=== PATIENT | female | born 1980 | race Caucasian/White ===

== ENCOUNTER 2022-04-22 08:14 | Emergency (ER) | payer BC, MEDICAID, SELFPAY ==
[2022-04-22 08:20] VITALS: BP 135/89; PULSE 74; RESP 18; TEMP 36.7; O2SAT 97; BMI 37.5
--- NOTE | 2022-04-22 08:28 | PC.NURSE ---
Pt ambulatory to room without obvious distress. Pt sat in chair next to bed, reports doesn't want to lay in the bed due to pain would increase. Pt reports she push mowed the lawn a few days ago and today is reporting squeezing pain to middle of back, worse pain and difficulty breathing with laying down. Reports this is the 2nd time she has ever mowed. reports chronic low back pain but hasn't been able to feel it due to this pain. Denies symptoms, fevers, or trauma. Denies chest pain. Lung sounds clear bilat. skin pink/warm/dry. speech clear. speaking in complete sentences without difficulty. Call light set within reach and instructed on use.
--- NOTE | 2022-04-22 08:29 | XR_ITS ---
WS: [id number] XR chest 1V portable [id number] REASON FOR EXAM: sob FINDINGS: The heart and mediastinum are within normal limits. Calcified granulomatous disease is seen in both hemithoraces. No acute pulmonary parenchymal or pleural abnormality. No significant abnormality bony thorax. XR/XR chest 1V portable [id number] IMPRESSION: No acute chest abnormality.
--- NOTE | 2022-04-22 08:43 | ED_ITS ---
HPI - Back Pain/Injury General: Chief Complaint: Back Pain/Injury Stated Complaint: Back Pain Time Seen by Provider: 04/22/22 08:29 Source: patient Mode of arrival: ambulatory Limitations: no limitations History of Present Illness: 42-year-old female states she has been having mid back pain that wraps around her chest for last 3 days states she pushed mowed 3 days ago and has had the pain since then states it is much worse with palpation movement and with deep breathing she denies any anterior chest pain denies any cough denies any fever denies any exertional component. Associated symptoms: Deny abdominal pain, chills, dysuria, fever(s), nausea or vomiting Review of Systems Const: Denies: fever(s), chills, body aches or change in appetite Eyes: Denies: blurry vision or eye discomfort ENMT: Denies: throat pain or dental pain Card: Reports: chest pain Resp: Denies: dyspnea GI: Denies: abdominal pain, nausea, vomiting or diarrhea : Denies: dysuria Musc: Denies: neck pain or back pain Skin/Breast: Denies: rash Neuro: Denies: headache(s) Psych: Denies: depression Carson/Lymph: Denies: easy bruising All/Imm: Denies: urticaria PFS ED PFSH: Medical History (Updated 04/22/22 @ 09:07 by Dang Olsen MD) No pertinent past medical history Social History Substance/Drug Use: never Female Reproductive History: Date of last menstrual period: 04/22/22 Physical Exam Const: COMMON NORMALS: no acute distress, patient oriented x3 and healthy appearing HENMT: COMMON NORMALS: normocephalic and atraumatic HEAD & SCALP: normocephalic and atraumatic Eye: COMMON NORMALS: Equal, round and reactive pupils present and EOMs intact bilaterally PUPIL: Yes Equal, round and reactive pupils present Neck/C-Spine: COMMON NORMALS: full ROM and supple Chest: COMMONS NORMALS: normal inspection of the chest and normal palpation of entire chest wall Resp: COMMON NORMALS: normal respiratory effort, No retractions, No use of accessory muscles and clear to auscultation bilaterally AUSCULTATION: clear to auscultation bilaterally Cardio: COMMON NORMALS: regular rate, regular rhythm and No murmurs present (Cardio) RATE: regular rate RHYTHM: regular rhythm GI: COMMON NORMALS: Normal to inspection, nondistended, normoactive bowel sounds present, Soft to palpation, non-tender and no masses PALPATION: Yes Soft to palpation Back/Pelvis: OTHER: Point tenderness bilaterally paraspinal to the T-spine laterally along her chest wall as well reproduces her pain Extremity: COMMON NORMALS: normal to inspection and full ROM Neuro: COMMON NORMALS: patient oriented x3, moves all extremities and no focal motor deficits Psych: COMMON NORMALS: mental status grossly normal, Normal thought process present and cooperative THOUGHT PROCESS: Normal thought process present Skin: COMMON NORMALS: no rashes or lesions noted and no wounds GENERAL SKIN EXAM: no rashes or lesions noted Course Vital Signs: Vital signs: Vital Signs Temperature 98.0 F 04/22/22 08:20 Pulse Rate 74 04/22/22 08:20 Respiratory Rate 18 04/22/22 08:20 Blood Pressure 135/89 04/22/22 08:20 Pulse Oximetry 97 04/22/22 08:20 Oxygen Delivery Me thod 04/22/22 08:20 MDM - Back Pain/Injury Medical Decision Making Patient presents here with back pain is likely muscular in nature from mowing she is point tender on exam her EKG and x-ray are normal she is no signs of a pulmonary embolism or cardiac cause we will place her on Naprosyn Robaxin she is stable for discharge she is to follow-up PCP and return if worsening she understands agrees plan. Labs Radiology Impressions Chest X-Ray 04/22/22 08:29 IMPRESSION: No acute chest abnormality. EKG Data EKG 1: I personally reviewed and interpreted this EKG as follows: EKG interpretation date: 04/22/22 EKG interpretation time: 08:59 Interpretation: sinus santiago hr [address] or t wave abnormalities qrs 87 qtc 400 Discharge Plan Discharge Patient Disposition: Home Clinical Impression: Thoracic back pain Qualifiers: Chronicity: acute Back pain laterality: bilateral Qualified Code(s): M54.6 - Pain in thoracic spine Condition: Stable Prescriptions: New methocarbamol 750 mg tablet 750 mg PO Q6H PRN (Reason: spasms) Qty: 20 0RF Naprosyn 500 mg tablet 500 mg PO BID PRN (Reason: pain) Qty: 20 0RF Discharge Orders: Discharge ED (Routine); Ordered 04/22/22 Ordered By: Dang Olsen Discharge Diet: Advance as tolerated Discharge Activity: Resume usual activity Patient Instructions: Back Pain (ED) Coding Level of Care Code ED 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
[2022-04-22] MEDS: ketorolac 60 mg/2 mL INJ IM (08:45)
[2022-04-22] MEDS: methocarbamol 750 mg Tablet PO (08:45)
--- NOTE | 2022-04-22 08:50 | ECG_ITS ---
[facility] Test Date: 2022-04-22 Pat Name: Abigail Tello Department: Room: Gender: Female [employer]: : 1980 Requested By: Dang Olsen Order Number: [id number] Mili MD: Elizabeth Acosta M.D. Measurements Intervals Shiner Rate: 56 P: 5 PA: 144 QRS: 18 QRSD: 87 T: 7 QT: 409 QTc: 396 Interpretive Statements SINUS BRADYCARDIA No previous ECG available for comparison Electronically Signed On 04-22-2022 13:42:38 CDT by Elizabeth Acosta M.D. [email or web address]
[2022-04-22 09:32] VITALS: BP 121/85; PULSE 60; RESP 16; O2SAT 97
== END 2022-04-22 09:33 | disposition home or self-care (01) ==
PROVIDERS: Emergency Provider Emergency Medicine
DX: M54.6 Pain in thoracic spine (principal)
CPT/HCPCS: 71045; 93005; 96372; 99284; J1885

== ENCOUNTER → 2022-06-08 10:01 | Outpatient (BNVA) | payer BC, MEDICAID, SELFPAY | PROVIDERS: PCP Nurse Practitioner Family; Visit Provider Nurse Practitioner Family | DX: Z11.3 Encounter for screening for infections with a predominantly sexual mode of transmission (principal); N94.6 Dysmenorrhea, unspecified; R42 Dizziness and giddiness; R10.11 Right upper quadrant pain | CPT/HCPCS: 80053; 80061; 81003; 82306; 82607; 83735; 84439; 84443; 85025; 86592; 86695; 86696; 86705; 86706; 86709; 86803; 87340; 87491; 87591; 87661; 87806 ==

== ENCOUNTER → 2022-06-24 12:35 | Outpatient (BNVA) | payer BC, MEDICAID, SELFPAY | PROVIDERS: PCP Nurse Practitioner Family; Visit Provider Nurse Practitioner Family | DX: N94.6 Dysmenorrhea, unspecified (principal); Z11.3 Encounter for screening for infections with a predominantly sexual mode of transmission; R42 Dizziness and giddiness; R10.11 Right upper quadrant pain | CPT/HCPCS: 87491; 87591; 87661 ==

== ENCOUNTER 2022-08-09 07:31 | Outpatient (CLI) | payer BC, MEDICAID, SELFPAY ==
--- NOTE | 2022-08-09 08:15 | US_ITS ---
WS: [id number] Gallbladder and right upper quadrant ultrasound, 08/09/2022 Clinical Data: R10.11 - Right upper quadrant pain Comparison: None. Findings: The gallbladder shows no sludge or stone. The wall measures 0.2 cm with no pericholecystic fluid. The common bile duct is 0.2 cm and there are no intrahepatic ductal abnormalities. Liver shows no cysts, masses or dilated intrahepatic ducts. The portal vein shows normal flow. The pancreas is not obscured by overlying bowel gas and no cyst, pseudocyst, or evidence of pancreati tis is noted. Right kidney measures 11.2 cm and no cyst, masses or hydronephrosis can be seen. The aorta and inferior vena cava show no vascular abnormalities. US/US gall bladder [id number] Impression: Negative gallbladder and right upper quadrant ultrasound
== END 2022-08-09 07:32 | disposition home or self-care (01) ==
LOC: RAD 07:36
PROVIDERS: PCP Nurse Practitioner Family; Visit Provider Nurse Practitioner Family
DX: R10.11 Right upper quadrant pain (principal)
CPT/HCPCS: 76705

== ENCOUNTER → 2022-08-15 12:09 | Outpatient (BNVA) | payer BC, MEDICAID, SELFPAY | PROVIDERS: PCP Nurse Practitioner Family; Visit Provider Obstetrics & Gynecology | DX: N94.6 Dysmenorrhea, unspecified (principal); N85.2 Hypertrophy of uterus | CPT/HCPCS: 76830 ==

== ENCOUNTER 2022-10-19 08:40 | Day surgery (SDC) | payer BC, MEDICAID, SELFPAY ==
[2022-10-17 11:35] LABS: Add Urine Microscopic? NO; Charge for UA Resulting for Rev
[2022-10-17 11:39] LABS: Basophils % 0.4 %; Eosinophils # 0.1 10^3/uL (0.0-0.8); Eosinophils % 1.1 %; Hematocrit 40.7 % (37.0-47.0); Hemoglobin 12.9 g/dL (11.5-15.3); Lymphocytes # 2.9 10^3/uL (0.8-4.8); Lymphocytes % 34.3 %; Mean Corpuscular HGB Conc 31.7 g/dL (30.0-36.0); Mean Corpuscular Hemoglobin 29.1 pg (28.0-34.0); Mean Corpuscular Volume 91.7 fl (81-99); Mean Platelet Volume 9.8 fL (7.4-10.4); Monocytes # 0.5 10^3/uL (0.2-0.9); Monocytes % 6.3 %; Neutrophils # 4.85 10^3/uL (1.8-7.7); Neutrophils % 57.5 %; Nucleated Red Blood Cells % 0 %; Platelet Count 194 10^3/cmm (130-400); Red Blood Count 4.44 10^6/uL (4.1-5.3); Red Cell Distribution Width 12.5 % (12.1-15.1); White Blood Count 8.4 10^3/uL (4.0-10.0)
[2022-10-17 11:45] LABS: Bilirubin Urine Neg (Negative); Blood Urine Neg (Negative); Glucose Urine UA Norm (Normal); Ketones Urine 1+ (Negative); Leukocyte Esterase Urine Negative (Negative); Nitrate Urine Negative (Negative); Protein Urine Neg (Negative); Urine Appearance Clear (CLEAR); Urine Color Yellow (Yellow); Urobilinogen Urine Neg (Negative); pH Urine 5 (5-7)
[2022-10-17 11:56] LABS: Alanine Aminotransferase 12 U/L (0-33); Albumin Level 3.9 g/dL (3.5-5.2); Alkaline Phosphatase 103 U/L (35-105); Anion Gap 13.1 (5-19); Aspartate Amino Transferase 13 U/L (0-32); Blood Urea Nitrogen 10 mg/dL (6-20); Carbon Dioxide 25 mmol/L (22-29); Chloride 109 mmol/L (98-107); Globulin 2.6 g/dL (1.3-4.6); Glomerular Filtration Rate 109.1 mL/min (90-130); Glucose 100 mg/dL (65-115); Osmolality Calculated 295 mOsm/kg (285-295); Potassium 4.1 mmol/L (3.5-5.1); Sodium 143 mmol/L (136-145); Total Bilirubin 0.2 mg/dL (0.15-1.2); Total Protein 6.5 g/dL (6.6-8.7)
[2022-10-17 12:50] VITALS: BMI 37.8
--- NOTE | 2022-10-17 15:29 | P.ANESASSM_ITS ---
Pre-Anesthetic Assessment Height/Weight: Height 1.68 m Weight 106.141 kg Operation Date: 10/19/22 10:15 Proposed Procedures p Diagnostic laparoscopy 65655, N94.6(Not Applicable) - Paul Singer MD Familial anesthetic complications: None Was Beta Stephanie taken within 24 hours: N/A Was Clonidine taken within 24 hours: N/A Social No alcohol and No tobacco Exam alert, oriented x 3, clear to auscultation bilaterally and regular rate & rhythm Airway Submandibular: within normal limits Cervical ROM: within normal limits Mallampati: Class II Dentition: chipped GI Gastroesophageal Reflux Disease Metabolic Morbid Obesity Anesthetic Plan ASA status: 2 Anesthesia: General Medications/Allergies Home Medications Medication Instructions Recorded Confirmed Last Taken Type omeprazole 20 mg capsule,delayed See Rx Instructions .Route 08/09/22 10/17/22 10/17/22 Rx release .COMPLEX #180 caps Allergies Allergy/AdvReac Type Severity Reaction Status Date / Time No Known Allergies Allergy Verified 10/17/22 11:12 [facility] Anesthesia Medical History Herpes simplex antibody positive No pertinent past medical history Surgical History History of bilateral tubal ligation Family History Grandfather Cancer maternal, unknown what kind of cancer Diabetes paternal Grandmother Diabetes paternal Family/Other Diabetes paternal grandfather and grandmother Mother Thyroid condition Denies family history of Colon cancer Ovarian cancer Clotting disorder Dementia Heart disease Hyperlipidemia Chronic kidney disease (CKD) Breast cancer Anesthesia complication Bleeding disorder Hypertension Uterine cancer Stroke Social History Smoking and tobacco status: smoker, details unknown (vape) e-cigarettes E- Cigarette Details: vaporizer device Alcohol intake: never Desire information about alcohol rehabilitation?: No Adopted: No Caregiver/support person: No Lives independently: Yes Marital status: Single Number of children: 3 Current occupational status: employed Current occupation: [id number] Current gender identity: Female Special timo needs: No Female Reproductive History Date of last menstrual period: 04/22/22 Data Anesthesia 10/17/22 11:30 10/17/22 11:30 Short CBC 10/17/22 Range/Units 11:30 WBC 8.4 (4.0-10.0) 10^3/uL Hgb 12.9 (11.5-15.3) g/dL Hct 40.7 (37.0-47.0) % MCV 91.7 (81-99) fl Plt Count 194 (130-400) 10^3/cmm Neut % (Auto) 57.5 % Neut # (Auto) 4.85 (1.8-7.7) 10^3/uL BMP 10/17/22 11:30 Sodium 143 Potassium 4.1 Chloride 109 H Carbon Dioxide 25 BUN 10 Creatinine 0.6 Glucose 100 Calcium 9.0 Liver Function 10/17/22 Range/Units 11:30 Total Bilirubin 0.2 (0.15-1.2) mg/dL AST 13 (0-32) U/L ALT 12 (0-33) U/L Alkaline Phosphatase 103 (35-105) U/L Albumin 3.9 (3.5-5.2) g/dL Urine 10/17/22 Range/Units 11:30 Urine Color Yellow (Yellow) Urine Appearance Clear (CLEAR) Urine pH 5 (5-7) Ur Specific [place] 1.030 (1.005-1.030) Urine Protein Neg (Negative) Urine Glucose (UA) Norm (Normal) Urine Ketones 1+ H (Negative) Urine Nitrate Negative (Negative) Urine Bilirubin Neg (Negative) Ur Leukocyte Esterase Negative (Negative) Blood Bank 10/17/22 11:30 Blood Type O Positive Rho(D) Type Positive Antibody Screen TNP Cardiac Studies: No Data to Display
[2022-10-19] VITALS (12 sets, daily range): BP systolic 121–152; BP diastolic 80–101; PULSE 59–107; RESP 16–18; TEMP 36.2–36.6; O2SAT 90–100
[2022-10-19] MEDS: sodium chloride 0.9% 500 ML IV (09:20)
[2022-10-19] MEDS: scopolamine 1.5 Patch 1 PATCH TRANSDERMA (09:22)
[2022-10-19] MEDS: HYDROmorphone 1 mg/mL INJ 1 mL 0.5 MG IVP (09:23)
[2022-10-19 09:36] LABS: OR HCG Qualitative Urine Negative (Negative)
[2022-10-19] MEDS: sodium chloride 0.9% 1,000 ML 30 ML IV (09:44)
--- NOTE | 2022-10-19 10:38 | W.PM.OPSUD ---
Surgery/Procedure H&P Update DATE OF PROCEDURE: October 19, 2022 DATE H&P PERFORMED: 09/13/22 H&P UPDATE INFORMATION: I have reviewed H&P completed within last 30 days, I have examined patient prior to procedure and Changes to prior documentation as noted here PREOP DIAGNOSIS: Dysmenorrhea, pelvic pain PLANNED PROCEDURE: Operation Date: 10/19/22 10:15 Proposed Procedures p Diagnostic laparoscopy 97013, N94.6(Not Applicable) - Paul Singer MD
[2022-10-19] MEDS: ceFAZolin 2,000 MG in sodium chloride 0.9% (plus) 50 ML 100 MG IV (11:05)
--- NOTE | 2022-10-19 12:04 | P.OP_ITS ---
Operative Report Date of procedure: October 19, 2022 Pre-op diagnosis: Preop Diagnosis Dysmenorrhea, pelvic pain Post-op diagnosis: Same as above Procedure done: Diagnostic laparoscopy Pathology: No POWER WHEELCHAIR MECHANIC pathology noted Surgeon: Paul Singer MD Estimated blood loss (mL): 1 IV fluids (mL): 600 Urine output (mL): 200 Procedure: After informed consent, the patient was taken to the operating room where general anesthesia was administered. The patient was examined under anesthesia and found to have a normal uterus with normal adnexa. She was placed in the dorsal lithotomy position and prepped and draped in sterile fashion. Pre- Procedure Time-Out verifying the correct patient identity, correct procedure verified with consent, correct site and side, correct patient position, availability of correct implants and any special equipment or requirements was performed and acknowledge by the OR team. A weighted speculum was placed in the vagina, and the anterior lip of cervix was grasped with the single toothed tenaculum. A uterine manipulator was advanced into the endocervical. Tenaculum was removed after uterine manipulator was secured. The speculum was removed from the vagina. An intraumbilical incision was made with a scalpel. While tenting up on the abdomen, a Verres needle with sleeve was admitted into the intra-abdominal cavity. A saline drop test was performed and noted to be within normal limits. Pneumoperitoneum was attained with 4 liters of carbon dioxide. The Verres needle was removed. A 5 mm trocar and sleeve were admitted into the abdomen and laparoscopic confirmation of location was achieved, A second incision was made 3 cm above the symphysis pubis, and a 5 mm trocar and sleeve were admitted into the abdomen under direct, laparoscopic visualization without complication. A survey revealed normal abdominal anatomy. Pelvic survey shows normal uterus, left and right adnexa status post partial salpingectomy. A 5 mm blunt probe was advanced through the second trocar sleeve, and light manipulation of ovaries and uterus to assess the posterior aspects was performed. No POWER WHEELCHAIR MECHANIC pathology noted. carbon dioxide was allowed to escape from the abdomen. The instruments were removed, and skin cover with a bandage. The instruments were removed from the vagina, and excellent hemostasis was noted. The patient tolerated the procedure well, and sponge, lap and needle count were correct times two. The patient taken to the recovery room in good condition.
[2022-10-19] MEDS: fentaNYL 50 mcg/mL INJ 2mL IVP (12:15)
[2022-10-19] MEDS: HYDROcodone-acetaminophen 5-325 mg Tablet 1 TAB PO (13:09)
--- NOTE | 2022-10-19 13:30 | P.ANESUD_ITS ---
Pre-Anesthetic Update Pre-Anesthetic Assessment: Date of Surgery/Procedure: 10/19/22 Preop Cherry gnosis: Dysmenorrhea, pelvic pain Proposed Procedure: Operation Date: 10/19/22 10:15 Proposed Procedures p Diagnostic laparoscopy 92174, N94.6(Not Applicable) - Paul Singer MD Any changes to Pre-Anesthetic Assessment?: No Last Intake: Intake Last Liquid Date 10/18/22 Last Liquid Time 21:00 Last Solid Date 10/18/22 Last Solid Time 21:00 Vitals: Temperature 97.8 F 10/19/22 12:57 Temperature Source Temporal Artery S can 10/19/22 12:57 Pulse Rate 59 L 10/19/22 13:07 Respiratory Rate 18 10/19/22 13:07 Respiratory Effort 10/19/22 12:15 Respiratory Depth Normal 10/19/22 12:15 Respiratory Patter n 10/19/22 12:15 Blood Pressure 121/80 10/19/22 13:07 Blood Pressure Irina n 93 10/19/22 13:07 Pulse Oximetry 96 10/19/22 13:07 Oxygen Delivery Me thod 10/19/22 13:07 Oxygen Flow Rate 2 10/19/22 12:41 Exam: Pre-Anes Outpt Exam: alert, oriented x 3, clear to auscultation bilaterally and regular rate & rhythm Cardiac Studies: No Data to Display
--- NOTE | 2022-10-19 15:32 | ANE.PACU2 ---
Inpatient post-anesthesia follow up: Airway intact: Yes Vital signs: Temperature 97.8 F Pulse Rate 59 Respiratory Rate 18 Blood Pressure 121/80 Pulse Oximetry 96 Oxygen Delivery Me thod Room Air Oxygen Flow Rate 2 Fraction of Inspir ed Oxygen Hydration adequate: Yes Nausea and vomiting: No Pain level: 3 Mental status: Baseline
== END 2022-10-19 13:40 | disposition home or self-care (01) ==
PROVIDERS: PCP Nurse Practitioner Family; Visit Provider Obstetrics & Gynecology
PROC: (CPT 49320; principal; 2022-10-19 10:05)
DX: R10.2 Pelvic and perineal pain (principal); N94.6 Dysmenorrhea, unspecified; N94.10 Unspecified dyspareunia; K21.9 Gastro-esophageal reflux disease without esophagitis; E66.01 Morbid (severe) obesity due to excess calories; Z68.37 Body mass index [BMI] 37.0-37.9, adult; F17.290 Nicotine dependence, other tobacco product, uncomplicated
CPT/HCPCS: 49320; 36415; 80053; 81003; 81025; 84703; 85025; 86850; 86900; J0690; J1170; J1885; J2250; J2405; J2704; J3010; J3490; J7030; J7040

== ENCOUNTER → 2023-03-14 15:36 | Outpatient (BNVA) | payer BC, MEDICAID, SELFPAY | PROVIDERS: PCP Nurse Practitioner Family; Visit Provider Emergency Medicine | DX: M25.572 Pain in left ankle and joints of left foot (principal) | CPT/HCPCS: 73610 ==

== ENCOUNTER → 2023-04-05 09:44 | Outpatient (BNVA) | payer BC, MEDICAID, SELFPAY | PROVIDERS: PCP Nurse Practitioner Family; Visit Provider Nurse Practitioner Family | DX: E55.9 Vitamin D deficiency, unspecified (principal); K21.9 Gastro-esophageal reflux disease without esophagitis | CPT/HCPCS: 80053; 82306; 84443 ==

== ENCOUNTER → 2023-05-11 09:26 | Outpatient (BNVA) | payer BC, MEDICAID, SELFPAY | PROVIDERS: PCP Nurse Practitioner Family; Visit Provider Podiatrist Foot & Ankle Surgery | DX: M79.672 Pain in left foot (principal); M72.2 Plantar fascial fibromatosis; M24.572 Contracture, left ankle | CPT/HCPCS: 73630 ==

== ENCOUNTER 2023-10-20 10:38 | Outpatient (CLI) | payer BC, MEDICAID, SELFPAY ==
--- NOTE | 2023-10-20 11:00 | MM_ITS ---
WS: [id number] BILATERAL SCREENING DIGITAL TOMOSYNTHESIS MAMMOGRAM WITH CAD HISTORY: breast cancer screening COMPARISON: None available. Bilateral CC and MLO views with tomosynthesis and synthetic mammography submitted. Computer aided det ection analyzed. Breast composition: There are scattered areas of fibroglandular density. No suspicious masses, microc alcifications or architectural distortion. Benign calcifications in each breast. IMPRESSION: MM/[place] [id number] BI-RADS: 2-Benign FOLLOW UP: 1 Year Follow-up
== END 2023-10-20 10:39 | disposition home or self-care (01) ==
LOC: RAD 10:38
PROVIDERS: PCP Nurse Practitioner Family; Visit Provider Surgery
DX: Z12.31 Encounter for screening mammogram for malignant neoplasm of breast (principal)
CPT/HCPCS: 77063; 77067